=== PATIENT | male | born 1980 | race Caucasian/White ===

== ENCOUNTER 2021-12-31 09:32 | Observation (INO) ==
[2021-12-31] MEDS ORDERED: Lactated Ringers 1000 ml BAG 1,000 ML IV ONE (10:40)
[2021-12-31] MEDS ORDERED: Morphine 4 MG/ML VIAL (1 ml) IV ONE ×2 (10:40→14:49)
[2021-12-31 11:00] LABS: ABS Basophils 0.1 10^3/ul (0-0.2); ABS Eosinophils 0.1 10^3/ul (0-0.6); ABS Monocytes 0.8 10^3/ul (0-0.8); ABS Neutrophils 10.6 10^3/ul (1.5-7.7); Eosinophil % 0.7 %; Hematocrit 51 % (42-52); Hemoglobin 18.3 g/dL (14.0-18.0); Lymphocyte % 20.8 %; Mean Corpuscular HGB Conc 36 g/dL (31-36); Mean Corpuscular Hemoglobin 33 pg (27-31); Mean Corpuscular Volume 92 fL (80-94); Mean Platelet Volume 8.4 fL (7.4-10.4); Nucleated Red Blood Cells % 0.2; Platelet Count 256 10^3/uL (150-450); Red Blood Count 5.58 10^6 /uL (4.18-5.48); Red Cell Distribution Width 13 % (10-15); White Blood Count 14.6 10^3/uL (3.5-10.8)
[2021-12-31 11:56] LABS: Urine Amorphous Crystals Present (Absent); Urine Appearance Clear; Urine Bacteria Absent (Absent); Urine Bilirubin Negative (Negative); Urine Blood Negative (Negative); Urine Color Yellow; Urine Glucose 3+(>=500 mg/dL) (Negative); Urine Ketones Negative (Negative); Urine Nitrite Negative (Negative); Urine Protein 2+(100 mg/dL) (Negative); Urine Red Blood Cell Trace(0-2/hpf) (Absent); Urine Squamous Epithelial Cell Present (Absent); Urine Urobilinogen Negative (Negative); Urine White Blood Cell Trace(0-5/hpf) (Absent)
[2021-12-31 12:04] LABS: ALT 41 U/L (7-52); Albumin 4.4 g/dL (3.2-5.2); Albumin/Globulin Ratio 1.3 (1-3); Alkaline Phosphatase 59 U/L (35-149); Blood Urea Nitrogen 12 mg/dL (6-24); C Reactive Protein 6.87 mg/L (<8.01); CO2 Carbon Dioxide 23 mmol/L (22-32); Calcium 9.4 mg/dL (8.6-10.3); Chloride 95 mmol/L (101-111); Globulin 3.4 g/dL (2-4); Glucose 386 mg/dL (70-100); Lipase 35 U/L (11.0-82.0); Sodium 129 mmol/L (135-145); Total Protein 7.8 g/dL (6.4-8.9); eGFR CKD-EPI 114.2 (>60)
[2021-12-31 12:05] LABS: Anion Gap 11 mmol/L (2-11)
[2021-12-31] MEDS ORDERED: Iodixanol (CONTRAST) 320 MG/ML 100 ML SDV IV ONE (12:21)
[2021-12-31] MEDS ORDERED: NS 0.9% 1000 ml BAG 1,000 ML IV ONE (14:10)
[2021-12-31 17:00] LABS: Urine Creatinine Concentration 70.75 mg/dL; Urine Sodium Concentration < 18 mmol/L
[2021-12-31] MEDS ORDERED: Dextrose 50% Syringe 50 ml 25 GM/50 ML SYRINGE IV PUSH PRN (17:29)
[2021-12-31] MEDS ORDERED: Lactated Ringers 500 ml BAG 500 ML IV ONE (17:42)
[2021-12-31 18:01] LABS: ABS Basophils 0.1 10^3/ul (0-0.2); ABS Eosinophils 0.1 10^3/ul (0-0.6); ABS Monocytes 0.8 10^3/ul (0-0.8); ABS Neutrophils 7.4 10^3/ul (1.5-7.7); Eosinophil % 0.9 %; Hematocrit 45 % (42-52); Hemoglobin 16.1 g/dL (14.0-18.0); Lymphocyte % 26.2 %; Mean Corpuscular HGB Conc 35 g/dL (31-36); Mean Corpuscular Hemoglobin 33 pg (27-31); Mean Corpuscular Volume 93 fL (80-94); Mean Platelet Volume 8.2 fL (7.4-10.4); Nucleated Red Blood Cells % 0.1; Platelet Count 182 10^3/uL (150-450); Red Blood Count 4.88 10^6 /uL (4.18-5.48); Red Cell Distribution Width 13 % (10-15); White Blood Count 11.3 10^3/uL (3.5-10.8)
[2021-12-31 18:11] LABS: INR 1.13 (0.86-1.15)
[2021-12-31] MEDS ORDERED: Insulin GLARGINE 100 un/ml 10 ml VIAL SUBCUT SCH (21:00)
[2022-01-01 05:53] LABS: ABS Basophils 0.1 10^3/ul (0-0.2); ABS Eosinophils 0.1 10^3/ul (0-0.6); ABS Monocytes 0.7 10^3/ul (0-0.8); ABS Neutrophils 7.3 10^3/ul (1.5-7.7); ABS Nucleated RBC 0.1 10^3/ul; Eosinophil % 1.1 %; Hematocrit 47 % (42-52); Hemoglobin 16.9 g/dL (14.0-18.0); Lymphocyte % 19.7 %; Mean Corpuscular HGB Conc 36 g/dL (31-36); Mean Corpuscular Hemoglobin 33 pg (27-31); Mean Corpuscular Volume 92 fL (80-94); Mean Platelet Volume 8.3 fL (7.4-10.4); Nucleated Red Blood Cells % 0.6; Platelet Count 169 10^3/uL (150-450); Red Blood Count 5.13 10^6 /uL (4.18-5.48); Red Cell Distribution Width 13 % (10-15); White Blood Count 10.2 10^3/uL (3.5-10.8)
[2022-01-01 06:05] LABS: INR 1.04 (0.86-1.15)
[2022-01-01 06:26] LABS: ALT 32 U/L (7-52); Albumin 3.8 g/dL (3.2-5.2); Albumin/Globulin Ratio 1.3 (1-3); Alkaline Phosphatase 51 U/L (35-149); Blood Urea Nitrogen 12 mg/dL (6-24); CO2 Carbon Dioxide 26 mmol/L (22-32); Calcium 8.6 mg/dL (8.6-10.3); Chloride 98 mmol/L (101-111); Globulin 2.9 g/dL (2-4); Glucose 289 mg/dL (70-100); Sodium 131 mmol/L (135-145); Total Protein 6.7 g/dL (6.4-8.9); eGFR CKD-EPI 117.5 (>60)
[2022-01-01 06:28] LABS: Anion Gap 7 mmol/L (2-11)
[2022-01-01] MEDS ORDERED: Ondansetron ODT 4 mg TAB 4 MG TAB SL PRN (07:58)
[2022-01-01 08:04] LABS: Potassium Redraw 4.2 mmol/L (3.5-5.0)
[2022-01-01 11:19] VITALS: BP 175/98
[2022-01-02 16:25] LABS: Erythropoietin 18.7 mIU/mL (2.6 - 18.5)
== END 2022-01-01 13:35 | disposition home or self-care (01) ==
LOC: ED 09:32 → EDHOLD 09:32 → SUATTDRO 17:19 → MEDTELE 20:09
PROVIDERS: ADMIT Student in an Organized Health Care Education/Training Program; ATTEND Internal Medicine